=== PATIENT | female | born 1985 | race African-American/Black ===

== ENCOUNTER 2020-10-31 14:41 | Emergency (ER) | payer MEDICAID, OTHER ==
[~2020-10-31] VITALS: Ht 160 cm; Wt 81.6 kg
[2020-10-31 16:18] VITALS: BP 133/95
== END 2020-10-31 17:59 | disposition left against medical advice (07) ==
LOC: ER 14:41
DX: M54.2 Cervicalgia (principal); M25.519 Pain in unspecified shoulder; R51.9 Headache, unspecified; Z53.21 Procedure and treatment not carried out due to patient leaving prior to being seen by health care provider; V89.2XXA Person injured in unspecified motor-vehicle accident, traffic, initial encounter; Y93.89 Activity, other specified; Y92.89 Other specified places as the place of occurrence of the external cause; Y99.8 Other external cause status

== ENCOUNTER 2020-11-01 08:32 | Emergency (ER) | payer MEDICAID, OTHER ==
[~2020-11-01] VITALS: Ht 160 cm; Wt 81.6 kg
[2020-11-01 09:00] VITALS: BP 135/95
== END 2020-11-01 09:08 | disposition home or self-care (01) ==
LOC: ER 08:32
DX: S16.1XXA Strain of muscle, fascia and tendon at neck level, initial encounter (principal); V43.52XA Car driver injured in collision with other type car in traffic accident, initial encounter; Y93.89 Activity, other specified; Y92.89 Other specified places as the place of occurrence of the external cause; Y99.8 Other external cause status